=== PATIENT | male | born 1980 | race Caucasian/White ===

== ENCOUNTER 2024-06-24 00:20 | Emergency (ER) | payer OTHER ==
[~2024-06-24] VITALS: Ht 165.1 cm; Wt 73.0 kg
[2024-06-24 00:24] VITALS: O2SAT 100
[2024-06-24] MEDS: OXYCODONE HCL/ACETAMINOPHEN 5/325MG TABLET PO ONE (02:28)
[2024-06-24 05:45] VITALS: TEMP 97.9
[2024-06-24 05:47] LABS: CLARITY URINE CLEAR (CLEAR); COLOR URINE YELLOW (YELLOW); GLUCOSE URINE 3+ (NEGATIVE); KETONES URINE TRACE (NEGATIVE); LEUKOCYTE ESTERASE URINE NEGATIVE (NEGATIVE); NITRITE URINE NEGATIVE (NEGATIVE); OCCULT BLOOD URINE NEGATIVE (NEGATIVE); PROTEIN URINE TRACE (NEGATIVE); SPECIFIC GRAVITY URINE 1.023 (1.005-1.030)
[2024-06-24 05:50] LABS: CHLORIDE 106 mEq/L (98-107); SODIUM 138 mEq/L (136-145)
[2024-06-24 05:51] LABS: CARBON DIOXIDE 25 mEq/L (21-32); INR 1.1; PROTHROMBIN TIME 12.6 sec (9.6-11.0)
[2024-06-24 05:52] LABS: CALCIUM 7.1 mg/dL (8.7-10.4)
[2024-06-24 05:55] LABS: POTASSIUM 2.8 mEq/L (3.5-5.1)
[2024-06-24 05:56] LABS: CREATININE 0.4 mg/dL (0.6-1.3); GLUCOSE 288 mg/dL (70-105)
[2024-06-24 05:58] LABS: ALANINE AMINOTRANSFERASE 59 IU/L (10-49); ALBUMIN 2.3 g/dL (3.2-4.8); ASPARTATE AMINOTRANSFERASE 141 IU/L (<34); LACTIC ACID 2.3 mmol/L (0.4-2.0)
[2024-06-24 05:59] LABS: BILIRUBIN TOTAL 3.1 mg/dL (0.1-1.0); PROTEIN TOTAL 7.2 g/dL (6.0-8.3); UREA NITROGEN BLOOD < 5 mg/dL (9-23)
[2024-06-24 06:00] LABS: HEMATOCRIT. 31.2 % (42.0-52.0); HEMOGLOBIN. 10.4 g/dL (14.0-18.0); MEAN CORPUSCULAR HEMOGLOBIN 31.1 pg (28.0-32.0); MEAN CORPUSCULAR HGB CONC 33.4 g/dL (31.0-37.0); MEAN CORPUSCULAR VOLUME 92.9 fL (80.0-94.0); MEAN PLATELET VOLUME 8.9 fl (7.4-10.4); RED BLOOD CELL COUNT 3.36 mill/uL (4.7-6.1); RED CELL DISTRIBUTION WIDTH 19.1 % (11.6-14.6)
[2024-06-24] MEDS: POTASSIUM CHLORIDE 20MEQ/PACKET PO NR (06:16)
[2024-06-24] MEDS: KETOROLAC 30MG/ML VIAL IV NR (06:17)
[2024-06-24] MEDS: CALCIUM GLUCONATE 1GM PREMIX 50 ML IV NR (06:30)
[2024-06-24 06:54] LABS: DIFFERENTIAL COMMENT 1
[2024-06-24 06:55] LABS: PLATELET 31 x1000/uL (130-400); WHITE BLOOD COUNT 1.7 x1000/uL (4.5-11.0)
[2024-06-24 07:33] LABS: BACTERIA URINE NONE SEEN; RBC URINE NONE SEEN /hpf (0-2); SQUAMOUS EPITHELIAL CELL URINE NONE SEEN /lpf (RARE/1+); WBC URINE 0-2 /hpf (0-2)
[2024-06-24] MEDS: SODIUM CHL 0.9% + KCL 20MEQ/L 1,000 ML IV SCH (08:35)
[2024-06-24 08:36] VITALS: BP 142/87; PULSE 97; RESP 16
[2024-06-24 13:29] LABS: ANISOCYTOSIS 2+; PLATELET ESTIMATE MARKEDLY DECREASED
== END 2024-06-24 09:06 | disposition home or self-care (01) ==
LOC: ER 00:20
DX: M25.551 Pain in right hip (principal); E11.9 Type 2 diabetes mellitus without complications; I10 Essential (primary) hypertension; Z98.890 Other specified postprocedural states
CPT/HCPCS: 80076; 80048; 81003; 83605; 83690; 85025; 85610; 86850; 86900; 86901; 36415; 72192; 96367; 96365; 96375; 99285; J0610; J1885; Z7610; J3480